=== PATIENT | female | born 1975 | race Caucasian/White ===

== ENCOUNTER → 2016-08-15 | Outpatient (CLI) | payer OTHER ==
--- NOTE | 2016-08-15 15:04 | MA ---
Screening Digital Mammogram With iCAD Analysis Clinical Indications: Routine screening. Her maternal grandmother was diagnosed with breast cancer in her 50s. Technique: Standard cephalocaudal projections were obtained. Digital breast tomosynthesis was perform ed in the MLO projection with reconstruction at 1.0-mm slice thickness and composite MLO views recons tructed. This examination was processed by the iCAD computer- aided detection system. Comparison: Baseline study; no previous mammograms have been performed. Breast density: Type D: Extremely dense. Findings: CAD was reviewed. There is nodular asymmetry in the axillary aspect of the left breast note d on the oblique view and tomographic images. No suspicious calcifications are identified. Impression: Left breast nodular asymmetry requires further evaluation. BI-RADS 0. Recommendation: Spot compression assessment of the left breast with ultrasound suggested if the abnor mality persists on diagnostic evaluation. [facility] will send a result letter to the patient. Negative mammography should not preclude additional workup of a clinically suspicious finding. The patient's information is entered into a reminder system with a target due date for her next mammo gram.
== END ==
LOC: FIMAGING 12:09
DX: Z12.31 Encounter for screening mammogram for malignant neoplasm of breast (principal); Z80.3 Family history of malignant neoplasm of breast
CPT/HCPCS: G0202

== ENCOUNTER → 2016-08-17 | Outpatient (CLI) | payer OTHER ==
--- NOTE | 2016-08-17 11:49 | US ---
Ultrasound Pelvis Complete (Transabdominal and Endovaginal) Including Duplex/Doppler Imaging History: N 92.0, intermenstrual bleeding Technique: Transabdominal and endovaginal ultrasound images were obtained. Endovaginal images obtain ed for better evaluation of the uterine myometrium and adnexa. Duplex/Doppler imaging of adnexa. Findings: Uterus measures 8 x 4 x 5 cm. Endometrial thickness is 6 mm. Heterogenous uterus with 2 an terior left-sided mid body submucosal cyst measuring up to 4 mm. Right ovary measures 2.7 x 1.5 x 1.5 cm. Left ovary measures 2.6 x 2.2 x 1 cm. No adnexal masses. No significant free fluid in the pelvis. Color Doppler flow to both ovaries without torsion. Impression: 1. Heterogenous uterus with submucosal myometrial cysts. 2. No definite uterine leiomyomata. 3. No adnexal masses or ovarian torsion.
== END ==
LOC: FIMAGING 10:10
PROVIDERS: ATTEND Nurse Practitioner
DX: N85.8 Other specified noninflammatory disorders of uterus (principal)

== ENCOUNTER → 2016-08-25 | Outpatient (CLI) | payer OTHER ==
--- NOTE | 2016-08-25 13:01 | MA ---
1. Diagnostic Digital Impression: Mammogram History: Nodule left axillary segment. Comparison: Screening mammogram August 15, 2016. Technique: A spot view in the oblique lateral projection and a CC view exaggerating the far outer lef t breast. Density: D Findings: Nodules confirmed in the axillary segment. It has sharp margins.. Impression: Further imaging with ultrasound to determine if this represents a benign lymph node, cys t or solid lesion of other etiology. BI-RADS 0 additional imaging required with ultrasound. 2. Left breast ultrasound History: Evaluate left axillary nodule Findings: Corresponding to the mammographic nodule is a benign appearing lymph node in the left axill a measuring 0.9 x 0.8 x 0.3 cm. There is a normal fatty hilum. The cortex is smooth. Impression: The mammographic nodule is consistent with a benign axillary lymph node. Recommendation: Six-month follow-up left diagnostic mammogram to ensure stability of what likely cor responds to and is concordant with a probably benign lymph node seen on sonography. Results and recommendation were communicated to the patient at the time of the examination. Probably benign. BI-RADS 3.
== END ==
LOC: FIMAGING 12:10
DX: Z12.39 Encounter for other screening for malignant neoplasm of breast (principal); N63 Unspecified lump in breast
CPT/HCPCS: G0206

== ENCOUNTER → 2017-02-28 | Outpatient (CLI) | payer OTHER | LOC: FIMAGING 12:04 | PROVIDERS: ATTEND Midwife | DX: Z12.39 Encounter for other screening for malignant neoplasm of breast (principal); N63 Unspecified lump in breast | CPT/HCPCS: G0206 ==

== ENCOUNTER → 2017-09-12 | Outpatient (CLI) | payer OTHER | LOC: FIMAGING 11:42 | PROVIDERS: ATTEND Obstetrics & Gynecology | DX: Z12.31 Encounter for screening mammogram for malignant neoplasm of breast (principal); Z80.3 Family history of malignant neoplasm of breast ==

== ENCOUNTER → 2018-12-19 | Outpatient (CLI) | payer OTHER | LOC: FIMAGING 13:14 ==